=== PATIENT | male | born 1970 | race Caucasian/White ===

== ENCOUNTER → 2017-05-17 | Day surgery (SDC) | payer BC ==
[2017-05-15 15:19] VITALS: BMI 29.4
[~2017-05-17] MED LIST: LACTATED RINGERS 1,000 ML IV SCH; LIDOCAINE 1% 20 ML VIAL (10MG/ML) FOR IV START INTRADERMA PRN; LIDOCAINE 1% INJ 10MG/ML (20 ML MDV) ONE; PROPOFOL 10 MG/ML 20 ML VIAL IV ONE
[2017-05-17 08:14] VITALS: RESP 16; TEMP 98
[2017-05-17 10:19] VITALS: BP 118/78; PULSE 55
--- NOTE | 2017-05-17 12:41 | P.PCN ---
Date of Procedure: 05/17/17 Procedure(s) Performed: Procedure: 1. Esophagogastroduodenoscopy and biopsy. 2. Colonoscopy and biopsy. Preoperative diagnosis: Chronic reflux symptoms, atypical chest pains and intermittent rectal bleeding and history of Crohn's disease. Postoperative diagnosis: 1. Mild antral gastritis. 2. Low-grade internal hemorrhoids without bleeding at the time of this exam. 3. Biopsies obtained from the duodenum, antrum, esophagus, terminal ileum and random colon. Preparation: HalfLytely prep. Sedation: Was provided by anesthesia. Brief clinical history: The patient is a 46-year-old male who is scheduled for this evaluation for the above reasons. The patient was diagnosed with Crohn's disease more than 20 years ago and has required mesalamine treatments back and for several months but has been off medications for a long time. No diarrhea, abdominal pains or extraintestinal manifestations of inflammatory bowel disease. He does see blood on the toilet tissue. Has chronic reflux symptoms and recently has been experiencing atypical chest pains and some degree of swallowing difficulty. Procedure: With the patient on his left lateral decubitus position and after informed consent and adequate sedation, I passed the Olympus-GIF 160 video upper endoscope through the cricopharyngeus down the esophagus. GE junction was around 40 cm from the incisors and there was no definite hiatal hernia or any obvious esophagitis or complicated reflux disease. The endoscope was then passed into the stomach which was insufflated with air and inspected in detail including the retroflex view in the cardia. There was some mottling and erythema in the antrum but no ulcers or erosions. Pyloric channel, duodenal bulb, post bulbar area and descending duodenum appeared within normal limits. Because of his symptoms, I obtained biopsies from the duodenum, antrum and esophagus then the endoscope was withdrawn and I proceeded with the colonoscopy. Perianal area did not show any fissures or fistulas. There were no masses felt on digital rectal examination. The Olympus CFQ 160L video colonoscope was then inserted in the rectum in the usual fashion and advanced to the cecum. I intubated the ileocecal valve and examined the terminal ileum. Terminal ileum and colon appeared healthy with no edema, erythema, friability, ulceration, exudation or spontaneous bleeding. No polyps or tumors were seen or any obvious diverticular disease. I retroflexed the endoscope in the rectum before the endoscope was withdrawn. Low-grade internal hemorrhoids were noted with no obvious bleeding. I obtained biopsies from the terminal ileum and randomly from the colon before the endoscope was withdrawn. The patient tolerated the procedure well. Plan: The patient was reassured. Will await biopsy results. Discussed dietary measures and local care for hemorrhoids. Further plans will be made based on his course and biopsy results. He will follow up with you as planned and we will keep you updated on his progress.
== END ==
LOC: ORWHC2ENDO 07:53
DX: K29.50 Unspecified chronic gastritis without bleeding (principal); K64.8 Other hemorrhoids; K31.89 Other diseases of stomach and duodenum; K22.9 Disease of esophagus, unspecified; K21.9 Gastro-esophageal reflux disease without esophagitis; I10 Essential (primary) hypertension; Z79.82 Long term (current) use of aspirin; Z79.899 Other long term (current) drug therapy; Z88.5 Allergy status to narcotic agent
CPT/HCPCS: 88305; 45380; 43239; J2001; J2704

== ENCOUNTER → 2018-12-23 | Outpatient (CLI) | payer BC ==
--- NOTE | 2018-12-23 11:07 | FL ---
EXAMINATION TYPE: FL barium swallow DATE OF EXAM: 12/23/2018 CLINICAL HISTORY: Dysphagia with reflux and globus sensation. TECHNIQUE: A double contrast esophagram is performed utilizing air and barium. A total of 58 second s of fluoroscopic time was utilized during procedure. 28 fluoroscopic images were saved. COMPARISON: None FINDINGS: The esophagus shows normal motility and emptying into the stomach. Mild degree vallecular r etention is seen, resolved with dry swallow. No evidence of hiatal hernia or stricture noted. Very mi ld gastroesophageal reflux was seen during real time performance of this study with the utilization o f Valsalva maneuver and a right lateral position. IMPRESSION: 1.Mild vallecular retention of contrast, resolved with a dry swallow. 2. Minimal gastroesophageal reflux with the utilization of Valsalva. 3. No hiatal hernia or stricture seen.
--- NOTE | 2018-12-23 11:47 | XR ---
EXAMINATION TYPE: XR chest 2V DATE OF EXAM: 12/23/2018 COMPARISON: NONE HISTORY: Dysphasia and chest pressure TECHNIQUE: Frontal and lateral views of the chest are obtained. FINDINGS: There is no focal air space opacity, pleural effusion, or pneumothorax seen. The cardiac silhouette size is upper limits of normal size. Post CABG changes are seen of the chest. Dehiscence o f the most inferior sternotomy wire is incidentally seen. The osseous structures are intact. IMPRESSION: No acute cardiopulmonary process.
== END | disposition home or self-care (01) ==
LOC: RADUSWWP 09:55
PROVIDERS: ATTEND Otolaryngology
DX: K21.9 Gastro-esophageal reflux disease without esophagitis (principal); R05 Cough
CPT/HCPCS: 71046; 74220

== ENCOUNTER → 2022-01-24 | Outpatient (CLI) | payer BC ==
[2022-01-24 10:47] LABS: Basophils # (A) 0.01 X 10*3/uL (0.00-0.10); Basophils % (A) 0.1 %; Eosinophils # (A) 0.01 X 10*3/uL (0.04-0.35); Eosinophils % (A) 0.1 %; HCT 47.3 % (39.6-50.0); HGB 15.1 g/dL (13.0-17.0); Immature Grans, Automated 0.7 %; Lymphocytes % (A) 4.7 %; MCH 28.6 pg (27.0-32.0); MCHC 31.9 g/dL (32.0-37.0); MCV 89.6 fL (80.0-97.0); Mean Platelet Volume 12.8 fL (9.5-12.2); Monocytes # (A) 0.16 X 10*3/uL (0.20-1.00); Monocytes % (A) 1.9 %; NRBC Per 100 WBC 0 /100 WBCS (0.0-0.0); Neutrophils # (A) 7.83 X 10*3/uL (1.80-7.70); Neutrophils % (A) 92.5 %; Platelet Count 133 X 10*3/uL (140-440); RBC 5.28 X 10*6/uL (4.40-5.60); RDW 12.6 % (11.5-14.5); WBC 8.47 X 10*3/uL (4.50-10.00)
[2022-01-24 11:12] LABS: ALT 42 U/L (10-49); AST 28 U/L (14-35); African American GFR (CKD) 99.8 (60.0-200.0); Albumin 4.7 g/dL (3.8-4.9); Albumin/Globulin Ratio 1.68 (1.60-3.17); Alkaline Phosphatase 90 U/L (41-126); Blood Urea Nitrogen 21.3 mg/dL (9.0-27.0); Calcium 9.8 mg/dL (8.7-10.3); Carbon Dioxide 23.6 mmol/L (20.0-27.5); Chloride 103 mmol/L (96-109); Globulin 2.8 g/dL (1.6-3.3); Glucose 141 mg/dL (70-110); Non-African American GFR(CKD) 86.2 (60.0-200.0); Potassium 4.8 mmol/L (3.5-5.5); Sodium 139 mmol/L (135-145); Total Protein 7.5 g/dL (6.2-8.2)
[2022-01-24 11:37] LABS: Hepatitis B Surface Antigen Nonreactive (Nonreactive)
[2022-01-24 12:32] LABS: Erythrocyte Sedimentation Rate 10 mm/Hr (0-20)
[2022-01-24 20:42] LABS: Rheumatoid Factor, Qnt <10 IU/mL (0-15)
== END | disposition home or self-care (01) ==
LOC: LABWHC1 07:32
PROVIDERS: ATTEND Allergy & Immunology
DX: L50.0 Allergic urticaria (principal); E03.9 Hypothyroidism, unspecified; E55.9 Vitamin D deficiency, unspecified
CPT/HCPCS: 36415; 80053; 82306; 82784; 82785; 84439; 84443; 85025; 85652; 86038; 86140; 86160; 86162; 86308; 86431; 87340

== ENCOUNTER → 2022-09-21 | Outpatient (CLI) | payer BC ==
--- NOTE | 2022-09-21 08:53 | MM ---
Reason for Exam: Clinical finding. Baseline mammogram. Indicated Problems: Lump or thickening of the left side for 6 Month(s). Pain of the left side (Focal) for 1 Month(s) : better than 1 month ago. Patient History: Mother had breast cancer, age 40. Prior Study Comparison: Patient's first Mammogram. Tissue Density: The breast tissue is heterogeneously dense. This may lower the sensitivity of mammography. Findings: Analyzed By CAD. There is flame-shaped density extensively present along the subareolar aspect of the left breast suggesting gynecomastia. A nodular asymmetric density superiorly on the left MLO view disperses on the 3-D lateral view. No significant mass or suspicious microcalcification seen. Benign scattered round and punctate calcifications are noted on both sides. Overall Assessment: Incomplete: need additional imaging evaluation, BI-RAD 0 Management: Diagnostic Breast Ultrasound of the left breast. As ordered. Electronically signed and approved by: Marilu Baca M.D. Radiologist
--- NOTE | 2022-09-21 09:03 | USB ---
Reason for Exam: Clinical finding. Patient History: Mother had breast cancer, age 40. Technique: Method: Targeted. Findings: The axilla of the left breast and the retroareolar of the left breast were scanned. Subareolar and periareolar ultrasound of the left breast including the axilla was performed. Scanning was extended out to the quadrants. There is subareolar irregular hypoechoic density present estimated to measure 3.2 x 2.1 x 1.7 cm. No other solid or cystic lesion. Findings in correlation with mammogram are compatible with benign gynecomastia. Overall Assessment: Benign, BI-RAD 2 Management: Clinical Management of the left breast. For the moderate asymmetric benign gynecomastia. Breast surgeon consultation can be considered if symptomatic. Results were given to the patient verbally at the time of exam. Electronically signed and approved by: Marilu Baca M.D. Radiologist
== END | disposition home or self-care (01) ==
LOC: RADMAMWWP 07:57
PROVIDERS: ATTEND Family Medicine
DX: N62 Hypertrophy of breast (principal); N64.4 Mastodynia; Z80.3 Family history of malignant neoplasm of breast
CPT/HCPCS: 77062; 77066

== ENCOUNTER → 2022-09-29 | Outpatient (CLI) | payer BC ==
[2022-09-29 16:07] VITALS: BP 134/64; PULSE 67; RESP 18; TEMP 97.8
--- NOTE | 2022-09-29 16:17 | P.GSHP ---
History of Present Illness H&P Date: 09/29/22 Chief Complaint: Enlarged left breast Abhishek is a 51-year-old male who is seen in consultation for Dr. Jean Paul Murry regarding left breast enlargement. He underwent a bilateral mammogram [id number]. This revealed breast tissue is heterogeneously dense. There was flame-shaped density aches intensively present along the subareolar aspect of the left breast suggesting gynecomastia. A nodular asymmetric density was seen superiorly in the left MLO view which dispersed on 3-D lateral view. An ultrasound of the left breast was recommended. No lesions of the right breast were noted. The patient underwent an ultrasound of the left breast on the same day. This revealed a 3.2 x 2.1 cm subareolar irregular hypoechogenic density. Findings were compatible with benign gynecomastia. The swelling in his left breast has been present since February 2022. There is nothing of concern in the right breast. He took Tylenol without any resolution of symptoms. He had a testosterone level done, the results are pending. He was steroids for eczema at the end of 2021. The swelling started after that. Is not complaining of any testicular lumps or masses. Family history: mother: breast cancer late 40's father: colon cancer Medical History: [place] high cholesterol HTN Surgical History: bypass surgery at 37, CAD appy SociaL History: nicotine: none alcohol: 2 beer/week drugs: none - Constitutional Constitutional: Denies chills, Denies fever - EENT Eyes: denies blurred vision, denies pain Ears: deny: decreased hearing, tinnitus Ears, nose, mouth and throat: Denies headache, Denies sore throat - Breasts Breasts: bilateral: as per HPI - Cardiovascular Cardiovascular: Reports as per HPI, Denies chest pain, Denies shortness of breath - Respiratory Respiratory: Denies cough, Denies 7 - Gastrointestinal Gastrointestinal: Denies abdominal pain, Denies diarrhea, Denies nausea, Denies vomiting - Genitourinary (Male) Genitourinary: Denies dysuria, Denies hematuria - Musculoskeletal Musculoskeletal: Denies myalgias - Integumentary Comment: Eczema Integumentary: Denies pruritus, Denies rash - Neurological Neurological: Denies numbness, Denies weakness - Psychiatric Psychiatric: Denies anxiety, Denies depression - Endocrine Endocrine: Denies fatigue, Denies weight change - Hematologic/Lymphatic Comment: none, on baby aspirin - Allergic/Immunologic Allergic/Immunologic: Reports seasonal allergies Past Medical History Past Medical History: Coronary Artery Disease (CAD), Hypertension Additional Past Medical History / Comment(s): abd pain,steroid April 2017 History of Any Multi-Drug Resistant Organisms: None Reported Past Surgical History: Appendectomy, Coronary Bypass/CABG, Heart Catheterization Additional Past Surgical History / Comment(s): 5 VESSEL BYPASS. Past Anesthesia/Blood Transfusion Reactions: No Reported Reaction, Motion Sickness Past Psychological History: No Psychological Hx Reported Past Alcohol Use History: None Reported Past Drug Use History: None Reported - Past Family History Mother Family Medical History: Cancer Additional Family Medical History / Comment(s): breast Medications and Allergies Home Medications Medication Instructions Recorded Confirmed Type Aspirin 162 mg PO DAILY 11/13/14 05/15/17 History Losartan Potassium 25 mg PO HS 11/13/14 05/17/17 History Metoprolol Succinate [Toprol XL] 50 mg PO QAM 11/13/14 05/15/17 History Ebony-3 Fatty Acids/Fish Oil [Fish 1 tab PO DAILY 11/13/14 05/15/17 History Oil 1,000 mg Softgel] Calcium Carbonate [Tums] 500 mg PO QID PRN 11/19/14 05/17/17 History Allergies Allergy/AdvReac Type Severity Reaction Status Date / Time codeine Allergy Rash/Hives Verified 05/17/17 08:03 Surgical - Exam - General no distress - Eyes normal ocular movement - ENT no hearing loss - Neck trachea midline - Respiratory normal respiratory effort - Cardiovascular Heart Sounds: normal: S1, S2 - Abdomen Abdomen: soft, non tender, no guarding, no rigid, no rebound - Integumentary normal turgor - Neurologic no disoriented, no combative - Musculoskeletal normal gait - Psychiatric oriented to time, oriented to person, oriented to place, speech is normal, memory intact Breast examination: Right breast: Multi-positional exam slight increased density behind the nipple areolar complex nontender no dominant masses or nodules of concern Right axilla: No adenopathy of concern Left breast: Multi-positional exam approximately 2-1/2-3 cm area of increased tissue behind the nipple areolar complex extending onto the upper outer quadrant of the breast tender to palpation no other dominant masses or nodules of concern Left axilla: No adenopathy of concern Testicular exam: Right testicle: No lumps masses or nodules Left testicle: No lumps masses or nodules Results Mammogram and ultrasound reviewed from 83 Assessment and Plan Assessment: Impression: Tender mass left breast consistent with gynecomastia History of coronary artery disease Patient was on steroids just prior to the development of a gynecomastia Verbal report that testosterone levels have been done and were normal Plan: Sunday adequate biopsy left breast Patient will follow up after this Cc: Dr. Jean Paul Murry
== END ==
LOC: WWCWWP 15:52
PROVIDERS: ATTEND Surgery
DX: N63.20 Unspecified lump in the left breast, unspecified quadrant (principal); N64.89 Other specified disorders of breast; I25.10 Atherosclerotic heart disease of native coronary artery without angina pectoris; I10 Essential (primary) hypertension; E78.00 Pure hypercholesterolemia, unspecified; I25.2 Old myocardial infarction; Z79.899 Other long term (current) drug therapy; Z95.1 Presence of aortocoronary bypass graft; Z80.3 Family history of malignant neoplasm of breast; Z88.5 Allergy status to narcotic agent

== ENCOUNTER → 2023-07-19 | Outpatient (CLI) | payer BC ==
[2023-07-19 15:48] LABS: ALT 70 U/L (10-49); AST 32 U/L (14-35); Albumin 4.4 g/dL (3.8-4.9); Albumin/Globulin Ratio 1.91 Ratio (1.60-3.17); Alkaline Phosphatase 113 U/L (41-126); BUN/Creat Ratio 18.82 Ratio (12.00-20.00); Blood Urea Nitrogen 20.7 mg/dL (9.0-27.0); Calcium 9.7 mg/dL (8.7-10.3); Carbon Dioxide 24.6 mmol/L (21.6-31.8); Chloride 103 mmol/L (96-109); Globulin 2.3 g/dL (1.6-3.3); Glucose 92 mg/dL (70-110); Potassium 4.8 mmol/L (3.5-5.5); Prealbumin 23.7 mg/dL (18.0-42.0); Sodium 138 mmol/L (135-145); Total Bilirubin 0.4 mg/dL (0.3-1.2); Total Protein 6.7 g/dL (6.2-8.2)
[2023-07-20 11:09] LABS: HCT 44.7 % (39.6-50.0); HGB 14.2 g/dL (13.0-17.0); MCH 28.6 pg (27.0-32.0); MCHC 31.8 g/dL (32.0-37.0); MCV 90.1 FL (80.0-97.0); NRBC Per 100 WBC 0 X 10*3/uL (0.00-0.01); Platelet Count 89 X 10*3/uL (140-440); RBC 4.96 X 10*6/uL (4.40-5.60); RDW 12.9 % (11.5-14.5); WBC 7.01 X 10*3/uL (4.50-10.00)
[2023-07-20 11:11] LABS: Erythrocyte Sedimentation Rate 20 mm/Hr (0-20)
== END | disposition home or self-care (01) ==
LOC: LABWHC1 07:52
PROVIDERS: ATTEND Internal Medicine Infectious Disease
DX: I25.10 Atherosclerotic heart disease of native coronary artery without angina pectoris (principal); L20.84 Intrinsic (allergic) eczema
CPT/HCPCS: 36415; 80053; 82785; 83036; 84134; 85025; 85027; 85652; 86140

== ENCOUNTER → 2024-01-23 | Outpatient (CLI) | payer BC ==
[2024-01-23 10:16] LABS: HCT 41.1 % (39.6-50.0); HGB 13.3 g/dL (13.0-17.0); MCH 28.4 pg (27.0-32.0); MCHC 32.4 g/dL (32.0-37.0); MCV 87.6 FL (80.0-97.0); Mean Platelet Volume 12.9 FL (9.5-12.2); NRBC Per 100 WBC 0 X 10*3/uL (0.00-0.01); Platelet Count 136 X 10*3/uL (140-440); RBC 4.69 X 10*6/uL (4.40-5.60); RDW 12.4 % (11.5-14.5); WBC 7.61 X 10*3/uL (4.50-10.00)
[2024-01-23 10:33] LABS: INR 0.99 sec (0.93-1.11); Prothrombin Time 11.1 sec (9.9-11.9)
[2024-01-23 10:34] LABS: BUN/Creat Ratio 16.36 Ratio (12.00-20.00); Calcium 9.5 mg/dL (8.7-10.3); Carbon Dioxide 25.9 mmol/L (21.6-31.8); Chloride 105 mmol/L (96-109); Chol/HDL Ratio 5.95 Ratio; Glucose 92 mg/dL (70-110); Potassium 4.5 mmol/L (3.5-5.5); Sodium 141 mmol/L (135-145)
== END | disposition home or self-care (01) ==
LOC: LABWHC1 07:11
PROVIDERS: ATTEND Internal Medicine
DX: Z01.810 Encounter for preprocedural cardiovascular examination (principal); I25.110 Atherosclerotic heart disease of native coronary artery with unstable angina pectoris; E78.49 Other hyperlipidemia; Z78.9 Other specified health status
CPT/HCPCS: 36415; 80048; 80061; 85027; 85610